=== PATIENT | female | born 1985 | race Caucasian/White ===

== ENCOUNTER 2016-10-02 21:45 | Emergency (ER) | payer OTHER ==
[~2016-10-02 21:45] MED LIST: CYCLOBENZAPRINE10 M1 PO; NAPROXEN500 M2 PO; TRAMADOL HCL50 M1 PO
--- NOTE | 2016-10-02 22:42 | ED EAR COMPLAINT ---
History of Present Illness General Chief Complaint: Ear Complaints Stated Complaint: EAR ACHE Source: patient Exam Limitations: no limitations Vital Signs & Intake/Output Vital Signs & Intake/Output Vital Signs Date Time Temp Pulse Resp B/P Pulse O2 O2 Flow FiO2 Ox Delivery Rate 10/02 2210 97.4 93 20 135/81 Allergies Coded Allergies: No Known Allergies (06/26/16) Reconcile Medications Amoxicillin 500 MG TABLET 1 TAB PO TID EAR INFECTION Cyclobenzaprine HCl 10 MG TABLET 1 TAB PO QPM PRN SPASM Naproxen 500 MG TABLET 1 TAB PO BID PRN PAIN TAKE WITH FOOD Oxycodone HCl/Acetaminophen (Percocet 5-325 MG Tablet) 5 MG-325 MG TABLET 1-2 TAB PO Q6P PRN PAIN Tramadol HCl 50 MG TABLET 1 TAB PO BIDP PRN BREAKTHROUGH PAIN Triage Note: PER PT CHRONIC DRAINAGE FROM L EAR WAS SUPPOSED TO GET A REFERRAL TO ENT BUT NEVER GOT IT. TAKING MOTRIN WITH SOME EFFECT BUT I THINK I NEED AN ANTIBIOTIC LAST DOSE 2100 Triage Nurses Notes Reviewed? yes HPI: Patient presents with a left earache with drainage. Patient states that she has had similar symptoms multiple times in the past. Patient knows that she needs to see an ear nose and throat doctor but has been unable to yet. Patient describes an achy pain to the left ear. There is no radiation. The pain is constant. No aggravating or mitigating factors. She rates the pain as 8 out of 10. There are no fevers or chills. There is decreased hearing in her left ear. Past History Travel History Traveled to [place] past 21 day No Medical History Any Pertinent Medical History? none Surgical History Surgical History: non-contributory Psychosocial History What is your primary language Kyrgyz Tobacco Use: Current Daily Use Daily Tobacco Use Amount/Type: => 5 Cigarettes daily ETOH Use: occasional use Illicit Drug Use: denies illicit drug use Family History Hx Contributory? No Review of Systems Review of Systems Constitutional: Reports: no symptoms. EENTM: Reports: see HPI, ear discharge, ear pain. Respiratory: Reports: no symptoms. Cardiovascular: Reports: no symptoms. GI: Reports: no symptoms. Neurological/Psychological: Reports: no symptoms. Physical Exam Physical Exam General Appearance: well developed/nourished, alert, awake, anxious Head: atraumatic, normal appearance Eyes: Bilateral: PERRL, EOMI. Ears: Left: discharge, erythema, swelling, tenderness, Tympanic red, Tympanic bulging. Right: canal normal. Nose: normal inspection Mouth/Throat: normal mouth inspection Neck: normal inspection, supple, full range of motion Cardiovascular/Respiratory: normal breath sounds, normal peripheral pulses, regular rate/rhythm Neurologic/Psych: no motor/sensory deficits, awake, alert, oriented x 3, normal gait, normal mood/affect Progress Differential Diagnoses I considered the following diagnoses in my evaluation of the patient: [Otitis media, otitis externa] Plan of Care: Antibiotics and follow-up Initial ED EKG: none Departure Departure Disposition: HOME OR SELF CARE Condition: Stable Clinical Impression Primary Impression: Left otitis media with effusion Referrals: JACKIE LITTLE MD PATIENT HAS NO PRIMARY CARE DR (PCP/Family) Additional Instructions: FOLLOW UP WITH DR. SIDNEY HERNANDEZ IF SYMPTOMS WORSEN OR FOR ANY COCNERNS Departure Forms: Customer Survey General Discharge Information Prescriptions: Current Visit Scripts Amoxicillin 1 TAB PO TID #30 TAB Oxycodone HCl/Acetaminophen (Percocet 5-325 MG Tablet) 1-2 TAB PO Q6P PRN PAIN #10 TAB
[2016-10-02] MEDS ORDERED: PERCOCET 5-3251 EACH PO (22:43)
[2016-10-02] MEDS ORDERED: AMOXICILLIN500 M3 PO (22:43)
[2016-10-02 23:18] VITALS: BP 132/80
== END 2016-10-02 23:19 ==
LOC: ERH 21:45
DX: H65.92 Unspecified nonsuppurative otitis media, left ear (principal)

== ENCOUNTER 2016-11-19 15:00 | Emergency (ER) | payer OTHER ==
[~2016-11-19 15:00] MED LIST changes: +AMOXICILLIN500 M3 PO; +PERCOCET 5-3251 EACH PO
[2016-11-19 15:04] VITALS: BP 116/79
--- NOTE | 2016-11-19 15:38 | ED SKIN/ALLERGY COMPLAINT ---
History of Present Illness General Chief Complaint: Skin Rash/ Abcess Stated Complaint: ABCESS IN GROIN Source: patient, old records Exam Limitations: no limitations Vital Signs & Intake/Output Vital Signs & Intake/Output Vital Signs Date Time Temp Pulse Resp B/P B/P Pulse O2 O2 Flow FiO2 Mean Ox Delivery Rate 11/19 1504 98.7 76 16 116/79 97 Room Air Allergies Coded Allergies: No Known Allergies (06/26/16) Reconcile Medications Amoxicillin 500 MG TABLET 1 TAB PO TID EAR INFECTION Cephalexin (Keflex) 500 MG CAPSULE 1 CAP PO TID abscess Cyclobenzaprine HCl 10 MG TABLET 1 TAB PO QPM PRN SPASM Naproxen 500 MG TABLET 1 TAB PO BID PRN PAIN TAKE WITH FOOD Oxycodone HCl/Acetaminophen (Percocet 5-325 MG Tablet) 5 MG-325 MG TABLET 1-2 TAB PO Q6P PRN PAIN Sulfamethoxazole/Trimethoprim (Bactrim Ds Tablet) 800 MG-160 MG TABLET 1 TAB PO BID abscess Tramadol HCl 50 MG TABLET 1 TAB PO BIDP PRN BREAKTHROUGH PAIN Triage Note: TRIAGE; PT TO ED WITH ?ABCESS TO RT GROIN X3 DAYS. Triage Nurses Notes Reviewed? yes Onset: Gradual Duration: day(s): (3), constant Timing: recent history Severity: mild, moderate Severity Numbers: 6 Location: genitalia Possible Factors: no cause identified No Modifying Factors: none Associated Symptoms: denies : No Patient currently breastfeeds: No HPI: 31-year-old female presents to ER for evaluation complaining of a questionable abscess to her right groin for the past 3 days. She states that she thought it was an infected hair follicle she attempted popping it without relief. She denies any fevers chills however reports a mild to moderate aching pain with palpation. She has a history of HPV however states this feels different. She denies any urinary complaints. Her menstrual cycle is now. No abdominal pain fever chills nausea or vomiting. She is not taken anything for symptoms. (ELIZABETH TALLEY) Past History Travel History Traveled to [place] past 21 day No Medical History Any Pertinent Medical History? none Surgical History Surgical History: non-contributory Psychosocial History What is your primary language Greenlandic Tobacco Use: Never used Family History Hx Contributory? No (ELIZABETH TALLEY) Review of Systems Review of Systems Constitutional: Reports: see HPI. All Other Systems: Reviewed and Negative Comments Review of systems: See HPI, All other systems negative. Constitutional, no chills no fever, no malaise HEENT: No visual changes no sore throat no congestion, Cardiovascular: No chest pain , no palpitation Respiratory: No dyspnea no cough no sputum DERM: seehpi GI: No nausea no vomiting, no diarrhea, no bloating/constipation : No dysuria No hematuria, Muscle skeletal: No joint pain, no joint swelling, no back pain, no neck pain, Neurologic: No numbness , no headache Psych: No stres. Heme/endocrine: No bruising no bleeding Immunology: No lymphadenopathy (ELIZABETH TALLEY) Physical Exam Physical Exam General Appearance: well developed/nourished, no apparent distress, alert, awake Comments: Well-developed well-nourished patient in no apparent distress. HEENT: Atraumatic, extraocular motion intact Neck: Supple, FROM Back: FROM Cardiovascular: Regular rate and rhythms no murmurs Respiratory: No respiratory distress. Patient speaking in full complete sentences. Breath sounds clear to auscultation bilaterally: NO W/R/R Extremities: full range of motion Neuro: awake, alert, and oriented to person, place and time. There were no obvious focal neurologic abnormalities. Skin: Warm & dry; small 1 cm abscess developing to the right vulva, no fluctuance, indurated, and to palpation Psych: Mood affect normal, normal memory normal judgment. (ELIZABETH TALLEY) Progress Differential Diagnosis: abscess/cellulitis, allergic reaction, contact dermatitis, shingles, herpes Plan of Care: discussed with the patient that I do not believe she would benefit from an incision and drainage at this time given the size and no fluctuance. Discussed with her need for antibiotics, sitz bathsand toreturn in 48 hours for recheck. I answered all of her questions she feels comfortable plan cleared for discharge (ELIZABETH TALLEY) Departure Departure Time of Disposition: 1551 Disposition: HOME OR SELF CARE Condition: Stable Clinical Impression Primary Impression: Abscess Referrals: PATIENT HAS NO PRIMARY CARE DR (PCP/Family) Additional Instructions: bactrim and keflex as directed. sitz baths in bath tub with epson salts. tylenol or motrin for pain. return to the er on sunday for wound check. return at anytime sooner with any concerns these were sent [facility] Departure Forms: Customer Survey General Discharge Information Prescriptions: Current Visit Scripts Sulfamethoxazole/Trimethoprim (Bactrim Ds Tablet) 1 TAB PO BID #14 TAB Cephalexin (Keflex) 1 CAP PO TID #21 CAP (ELIZABETH TALLEY) PA/DRIVE THRU ORDER TAKER Co-Sign Statement Statement: ED Attending supervision documentation- [] I saw and evaluated the patient. I have also reviewed all the pertinent lab results and diagnostic results. I agree with the findings and the plan of care as documented in the PA's/DRIVE THRU ORDER TAKER's documentation. [X] I have reviewed the ED Record and agree with the PA's/DRIVE THRU ORDER TAKER's documentation. [] Additions or exceptions (if any) to the PAs/DRIVE THRU ORDER TAKER's note and plan are summarized below: [] (HARJIT SPENCER,THEA Fuentes)
[2016-11-19] MEDS ORDERED: BACTRIM DS TAB1 EACH PO (15:53)
[2016-11-19] MEDS ORDERED: KEFLEX500 M1 PO (15:53)
== END 2016-11-19 16:09 ==
LOC: ERH 15:00
DX: L02.214 Cutaneous abscess of groin (principal)